=== PATIENT | male | born 2000 | race Caucasian/White ===

== ENCOUNTER 2021-09-14 00:13 | Emergency (ER) | payer SELFPAY ==
[~2021-09-14] VITALS: Ht 188 cm; Wt 109.1 kg
[2021-09-14 00:41] VITALS: BP 166/92; PULSE 95; TEMP 98.1
== END 2021-09-14 01:14 | disposition home or self-care (01) ==
LOC: COL.ER 00:13
DX: S40.861A Insect bite (nonvenomous) of right upper arm, initial encounter (principal); W57.XXXA Bitten or stung by nonvenomous insect and other nonvenomous arthropods, initial encounter

== ENCOUNTER 2023-12-04 10:38 | Emergency (ER) | payer SELFPAY ==
[~2023-12-04] VITALS: Ht 188 cm; Wt 77.3 kg
[2023-12-04 10:46] VITALS: TEMP 98.1
[2023-12-04 11:15] LABS: BASO # 0.1 K/mm3 (0.0-0.2); BASO % 0.5 % (0.0-2.0); EOS # 0.2 K/mm3 (0.0-0.7); EOS % 2.5 % (0.0-4.0); GRAN % 53.2 % (42.2-75.2); HEMATOCRIT 45.8 % (42.0-52.0); HEMOGLOBIN 16.2 g/dl (13.5-18.0); LYMPH # 3.3 K/mm3 (1.2-3.4); LYMPH % 35.1 % (20.0-51.0); MEAN CELL VOLUME 87 fl (80.0-100.0); MEAN CORPUSCULAR HEMOGLOBIN 31 pg (27-31); MEAN CORPUSCULAR HGB CONC 35 g/dl (33.0-37.0); MONO # 0.8 K/mm3 (0.1-0.6); MONO % 8.5 % (1.7-9.3); PLATELET COUNT 294 K/mm3 (130-400); RED BLOOD COUNT 5.29 M/mm3 (4.20-5.60); REDCELL DISTRIBUTION WIDTH-CV 12.4 % (11.5-14.5)
[2023-12-04 11:36] LABS: ALANINE AMINOTRANSFERASE 43 U/L (0-55); ALBUMIN 4.3 g/dL (3.5-5.0); ALKALINE PHOSPHATASE 118 U/L (40-150); ANION GAP 11 mmol/L (7-16); AST,SGOT 25 U/L (5-34); BLOOD UREA NITROGEN 20 mg/dL (9-21); CALCIUM 9.1 mg/dL (8.4-10.2); CHLORIDE 108 mEq/L (98-107); GLUCOSE 116 mg/dL (70-99); MAGNESIUM 2.1 mg/dL (1.6-2.6); POTASSIUM 3.4 mEq/L (3.5-4.5); SODIUM 141 mEq/L (136-145); TOTAL PROTEIN 7.1 g/dl (6.2-8.1)
[2023-12-04] MEDS ORDERED: amLODIPine 10 MG TAB PO ONE (11:45)
[2023-12-04 11:48] LABS: BILIRUBIN,TOTAL 0.6 mg/dL (0.2-1.2)
[2023-12-04 11:56] LABS: TSH w REFLEX 2.278 uIU/mL (0.350-4.940)
[2023-12-04 11:58] LABS: TROPONIN-I < 0.010 ng/mL (0.00-0.033)
[2023-12-04] MEDS ORDERED: amLODIPine 5 MG TAB PO ONE (12:00)
[2023-12-04] MEDS ORDERED: NORVASC 5MG5 MG/TAB PO (13:38)
[2023-12-04 14:11] VITALS: BP 131/90; PULSE 71
== END 2023-12-04 14:11 | disposition home or self-care (01) ==
LOC: COL.ER 10:38
PROVIDERS: Emergency Medicine
DX: I10 Essential (primary) hypertension (principal)